=== PATIENT | female | born 1965 | race Hispanic/Latino ===

== ENCOUNTER 2017-10-10 06:32 | Observation (INO) | payer OTHER ==
[2017-10-10] MEDS ORDERED: NACL 0.9% 500 ML 500 ML IV SCH (07:00)
[2017-10-10 07:16] LABS: Basophils % (Auto) 0.3 % (0.0-1.8); Eosinophils % (Auto) 2.8 % (0.0-4.3); Hematocrit 36.6 % (30.3-42.9); Hemoglobin 12.5 gm/dl (10.1-14.3); Mean Corpuscular HGB Conc 34 % (30-34); Mean Corpuscular Hemoglobin 31 pg (28-32); Mean Corpuscular Volume 91 fl (79-97); Platelet Count 270 K/mm3 (140-440); Red Blood Count 4.03 M/mm3 (3.65-5.03); White Blood Count 10.1 K/mm3 (4.5-11.0)
[2017-10-10 07:26] LABS: INR 0.88 (0.87-1.13)
[2017-10-10 07:29] LABS: Calcium 8.8 mg/dL (8.4-10.2); Chloride 103.8 mmol/L (98-107); Potassium 4.1 mmol/L (3.6-5.0)
[2017-10-10] MEDS ORDERED: HEPARIN/NS 5000 UNIT/500ML(CATH LAB) 1,500 ML IR ONE (09:05)
[2017-10-10] MEDS ORDERED: VERSED ONE (09:11)
[2017-10-10] MEDS ORDERED: D50W (25GM) Vial 50 ML IV ONE (09:23)
[2017-10-10] MEDS: SUBLIMAZE ONE ×2 (09:46→10:07)
[2017-10-10] MEDS: XYLOCAINE 2% INFILTRATI ONE ×2 (09:47→10:05)
[2017-10-10] MEDS ORDERED: D50W (25GM) Vial IV ONE (09:56)
[2017-10-10] MEDS: HEPARIN 10,000 UNITS/10 ML ONE ×3 (10:28→11:00)
[2017-10-10] MEDS ORDERED: PLAVIX ONE ×2 (10:40)
[2017-10-10] MEDS ORDERED: NITROGLYCERIN SYRINGE 3 ML ONE (10:40)
[2017-10-10] MEDS ORDERED: ALUM-MAG HYDROX-SIMETH 200-200-20MG/5ML ONE (10:40)
--- NOTE | 2017-10-10 11:43 | Event Note ---
Date: 10/10/17 Outpatient R/L heart cath with successful adhoc PCI of the mid LAD >95% to zero residual. Admit overnight post PCI observation.
--- NOTE | 2017-10-10 11:51 | Cardiac Catherization Report ---
CARDIAC CATHETERIZATION AND CORONARY ANGIOPLASTY REASON FOR PROCEDURE: The patient is a 51-year-old woman with a history of coronary artery disease and aortic insufficiency. Eight years ago, she underwent bioprosthetic aortic valve replacement with coronary bypass x 1 to the right coronary artery. The patient presents at this time with unstable angina. There was progressive angina pectoris, despite medical therapy with beta blockers and nitrates. PROCEDURES PERFORMED: 1. Right heart catheterization. 2. Left heart catheterization. 3. Selective left and right coronary angiography. 4. Left ventricle angiography. 5. Saphenous vein graft angiography. 6. Left internal mammary artery graft angiography. 7. Angioplasty and stenting of the left anterior descending artery. DESCRIPTION OF PROCEDURE: The patient was prepped and draped in a sterile fashion after informed consent. The right femoral artery and vein were entered using the Seldinger technique. A 6-Malagasy sheath was placed in the artery and an 8 Malagasy sheath in the vein. A Miller-Huang catheter was then advanced to the pulmonary artery position. A right Finn catheter was advanced into the left ventricle. Simultaneous right and left heart filling pressures were then measured. Cardiac output was measured using the thermodilution method. The Miller-Huang catheter was withdrawn and right heart pressures were recorded on pullback. The left ventricular angiography was then performed using hand injection and the right Finn catheter. Following this, the right Finn was withdrawn across the bioprosthetic aortic valve and transaortic pressures were recorded. Angiography of the [place] right coronary artery and the saphenous vein graft to the right coronary artery were then performed with the right Finn catheter. We then exchanged for the left Finn, which was used for the left coronary angiography. Following this, the left internal mammary artery catheter was then used to perform left internal mammary artery angiography. FINDINGS: HEMODYNAMICS: The mean right atrial pressure was 15. Right ventricular pressure was 40/18. Pulmonary artery pressure was 35/20. The mean pulmonary artery wedge pressure was 20, with V waves of 30. Left ventricular end-diastolic pressure was 20. Ascending aortic pressure was 165/65. There was minimal to no significant transaortic gradient across the bioprosthetic valve. Cardiac output was 3.8 liters per minute. CORONARY ANGIOGRAPHY: The left main coronary artery was free of significant disease. The left anterior descending artery contained a complex, ulcerated, greater than 95% stenosis of its mid segment. This is a de maryann lesion, which has manifested since the coronary and valve surgery of 8 years ago. The LAD at that time did not require bypass. A small ramus intermedius artery contained moderate severity ostial stenosis. The circumflex artery and its obtuse marginal branches contained diffuse mild atherosclerosis. The right coronary artery was dominant. This vessel contained a long, 80-90% stenosis of its proximal segment. The saphenous vein graft to the distal right coronary artery was patent with good anastomosis to the distal vessel and good distal runoff. No significant lesions were noted within the bypass graft or the distal runoff. There was normal left ventricular systolic function, ejection fraction 60%. CORONARY ANGIOPLASTY: After review of the angiograms, ad hoc coronary angioplasty and stenting of the mid LAD was recommended. We selected an XB 3.5 guiding catheter and advanced to the left coronary ostium. A 0.014 inch guidewire was introduced into the LAD, across the stenotic lesion. A 2.5 mm balloon catheter was then deployed and used to post-dilate the stenosis. We then deployed a serial, 2.75 mm stents across the lesional segment, covering the entire lesion. We then post-dilated the lesion using a 3.0 mm NC balloon catheter. Following balloon angioplasty and stenting and post-dilatation, there was an excellent angiographic result, 0 residual stenosis, MIROSLAVA 3 flow maintained down the vessel. Procedure was well tolerated by the patient and there were no complications. CONCLUSION: 1. Mild to moderate increase in right and left heart filling pressures, mild pulmonary hypertension. 2. No significant gradient on pullback across the bioprosthetic aortic valve. 3. Severe 2-vessel coronary artery disease. 4. Patent saphenous vein graft to the right coronary artery. 5. 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 6. Normal left ventricular systolic function, ejection fraction 60%. 7. Successful ad hoc angioplasty and stenting of the mid LAD, with successful deployment of serial 2.75 mm drug-eluting stents, excellent angiographic result. 8. Left internal mammary artery injection showed this vessel to be in situ, not used for coronary bypass. JOB# [id number] CA/NTS
[2017-10-10] MEDS: IMDUR PO SCH (13:35)
[2017-10-10] MEDS ORDERED: NACL 0.9% 1000 ML 1,000 ML ONE (14:19)
[2017-10-10] MEDS: NACL 0.9% 1000 ML 1,000 ML IV SCH ×2 (14:27→22:49)
[2017-10-10] MEDS ORDERED: ZOFRAN IV ONE (15:50)
[2017-10-10] MEDS ORDERED: ZOFRAN ONE (15:51)
[2017-10-10] MEDS ORDERED: ATROPINE 0.1% (CARDIAC) ONE (16:12)
[2017-10-10] MEDS ORDERED: ULTRAM PO PRN (16:33)
[2017-10-10] MEDS ORDERED: ZOFRAN IV PRN (16:33)
[2017-10-10] MEDS ORDERED: TYLENOL PO PRN (16:33)
[2017-10-10] MEDS ORDERED: AMBIEN PO PRN (16:33)
[2017-10-10] MEDS ORDERED: CALCIUM CARBONATE 1250 MG PO SCH (22:00)
[2017-10-10] MEDS: OSCAL PO SCH (22:53)
[2017-10-10] MEDS: PROGRAF PO SCH (23:36)
[2017-10-10] MEDS: CELLCEPT PO SCH (23:36)
[2017-10-11 06:11] LABS: Basophils % (Auto) 0.2 % (0.0-1.8); Eosinophils % (Auto) 2.4 % (0.0-4.3); Hematocrit 33.2 % (30.3-42.9); Hemoglobin 11.3 gm/dl (10.1-14.3); Mean Corpuscular HGB Conc 34 % (30-34); Mean Corpuscular Hemoglobin 31 pg (28-32); Mean Corpuscular Volume 91 fl (79-97); Platelet Count 230 K/mm3 (140-440); Red Blood Count 3.65 M/mm3 (3.65-5.03); Red Cell Distribution Width 13.6 % (13.2-15.2); White Blood Count 9.5 K/mm3 (4.5-11.0)
[2017-10-11 06:36] LABS: Creatine Kinase MB 1.3 ng/mL (0.0-4.0)
[2017-10-11 06:38] LABS: Anion Gap 14 mmol/L; BUN/Creatinine Ratio 14; Blood Urea Nitrogen 15 mg/dL (7-17); Calcium 8.7 mg/dL (8.4-10.2); Carbon Dioxide 24 mmol/L (22-30); Creatine Kinase 46 units/L (30-135); Glucose 194 mg/dL (65-100); Potassium 4.4 mmol/L (3.6-5.0); Sodium 139 mmol/L (137-145)
--- NOTE | 2017-10-11 09:27 | Short Stay Summary ---
Short Stay Documentation Date of service: 10/11/17 - History H&P: obtained from office - Allergies and Medications Current Medications: Allergies metoclopramide [From Reglan] Allergy (Verified 10/10/17 09:54) JAWS LOCK Sulfa (Sulfonamide Antibiotics) Allergy (Verified 10/10/17 09:54) Hives Home Medications Medication Instructions Recorded Confirmed Last Taken Type Aspirin [Lo-Dose Aspirin EC] 81 mg PO DAILY 10/10/17 10/10/17 10/10/17 05:00 History Calcium Carbonate [Calcium] 1,250 mg PO BID 10/10/17 10/10/17 10/09/17 History Clopidogrel Bisulfate [Plavix] 75 mg PO DAILY 10/10/17 10/10/17 10/10/17 05:00 History Esomeprazole Magnesium [NexIUM] 20 mg PO QDAY 10/10/17 10/10/17 10/09/17 History Insulin Aspart [Novolog Flexpen] 0 unit SQ PRN PRN 10/10/17 10/10/17 Unknown History Insulin NPH, Human [NovoLIN N] 12 units SQ QPM 10/10/17 10/10/17 10/09/17 History Insulin NPH, Human [NovoLIN N] 25 units SQ QAM 10/10/17 10/10/17 10/09/17 History Metoprolol [Lopressor TAB] 50 mg PO DAILY 10/10/17 10/10/17 10/10/17 05:00 History Mycophenolate [Cellcept] 500 mg PO BID 10/10/17 10/10/17 10/09/17 History Prednisone [predniSONE (German) ER 5 mg PO QDAY 10/10/17 10/10/17 10/09/17 History TAB] Simvastatin 40 mg PO DAILY 10/10/17 10/10/17 10/09/17 History Tacrolimus [Prograf] 2 mg PO BID 10/10/17 10/10/17 10/09/17 History Active Medications Acetaminophen (Tylenol) 650 mg PO Q4H PRN PRN Reason: Pain MILD(1-3)/Fever >100.5/ROSAS Aspirin (Baby Aspirin) 81 mg PO QDAY [facility] Calcium Carbonate/Glycine (Oscal) 1,250 mg PO BID [facility] Last Admin: 10/10/17 22:53 Dose: 1,250 mg Clopidogrel Bisulfate (Plavix) 75 mg PO QDAY [facility] Sodium Chloride (Nacl 0.9% 1000 Ml) 1,000 mls @ 100 mls/hr IV DIRECT [facility] Stop: 10/11/17 11:59 Last Admin: 10/10/17 22:49 Dose: 100 mls/hr Insulin Human Regular (Novolin R) 0 units SUB-Q ACHS [facility] PRN Reason: Protocol Last Admin: 10/10/17 22:49 Dose: Not Given Isosorbide Mononitrate (Imdur) 30 mg PO QDAY [facility] Last Admin: 10/10/17 13:35 Dose: 30 mg Metoprolol Tartrate (Lopressor) 50 mg PO DAILY [facility] Mycophenolate Mofetil (Cellcept) 500 mg PO BID [facility] Last Admin: 10/10/17 23:36 Dose: 500 mg Ondansetron HCl (Zofran) 4 mg IV Q8H PRN PRN Reason: N/V unrelieved by Wilber Last Admin: 10/10/17 22:53 Dose: 4 mg Pravastatin Sodium (Pravachol) 80 mg PO DAILY [facility] Prednisone (Deltasone) 5 mg PO QDAY [facility] Tacrolimus (Prograf) 2 mg PO BID [facility] Last Admin: 10/10/17 23:36 Dose: 2 mg Tramadol HCl (Ultram) 50 mg PO Q4H PRN PRN Reason: Pain, Mild (1-3) Zolpidem Tartrate (Ambien) 5 mg PO QHS PRN PRN Reason: Sleep - Physical exam General appearance: no acute distress HEENT: PERRLA Lungs: Clear to auscultation Heart: Regular rate, Normal S1, Normal S2 - Brief post op/procedure progress note Procedure: Outpatient R/L heart cath with successful adhoc PCI of the mid LAD >95% to zero residual. Condition: stable - Hospital course Hospital course: Stable overnight observation. - Disposition Condition at discharge: Good Disposition: [id number] TO HOME OR SELFCARE Short Stay Discharge Plan Activity: advance as tolerated Diet: low fat, low cholesterol, low salt, diabetic Special Instructions: other (Post cardiac cath instructions.) Follow up with: MATA PEREA MD [Staff Physician] - 7 Days VIDAL ARGUETA MD [Primary Care Provider] - 7 Days TRISTIN CRAWFORD MD [Staff Physician] - 7 Days Forms: CardCath PCI D/C Instructions Prescriptions: Clopidogrel Bisulfate [Plavix] 75 mg PO DAILY #30 tablet ISOSORBIDE MONOnitrate [Imdur ER] 30 mg PO QDAY #30 tablet
[2017-10-11 09:54] VITALS: BP 121/46
--- NOTE | 2017-10-11 09:58 | XRay Report ---
AP CHEST: HISTORY: chest pain AP view of the chest demonstrates a normal mediastinal and cardiac contour with clear lungs and normal bony and soft tissue structures. IMPRESSION: Unremarkable AP chest.
[2017-10-11] MEDS ORDERED: PRAVACHOL PO SCH (10:00)
[2017-10-11] MEDS: IMDUR PO SCH (10:00)
[2017-10-11] MEDS ORDERED: LOPRESSOR PO SCH (10:00)
[2017-10-11] MEDS ORDERED: DELTASONE PO SCH (10:00)
[2017-10-11] MEDS ORDERED: PLAVIX PO SCH (10:00)
[2017-10-11] MEDS: OSCAL PO SCH (10:00)
[2017-10-11] MEDS: PROGRAF PO SCH (10:00)
[2017-10-11] MEDS ORDERED: BABY ASPIRIN PO SCH (10:00)
[2017-10-11] MEDS ORDERED: NON-FORMULARY (Simvastatin [Simvastatin] 40 MG) PO SCH (10:00)
[2017-10-11] MEDS: CELLCEPT PO SCH (10:00)
[2017-10-11] MEDS ORDERED: NON-FORMULARY (Prednisone [Prednisone (Rayos) Er Tab] 5 MG) PO SCH (10:00)
== END 2017-10-11 11:00 | disposition home or self-care (01) ==
LOC: CATHLABREC 06:32 → 4A 11:31
PROVIDERS: ADMIT Internal Medicine Cardiovascular Disease; ATTEND Internal Medicine
DX: I25.110 Atherosclerotic heart disease of native coronary artery with unstable angina pectoris (principal); I35.1 Nonrheumatic aortic (valve) insufficiency; I35.8 Other nonrheumatic aortic valve disorders; R93.1 Abnormal findings on diagnostic imaging of heart and coronary circulation; R01.1 Cardiac murmur, unspecified; R09.89 Other specified symptoms and signs involving the circulatory and respiratory systems; I10 Essential (primary) hypertension; E11.9 Type 2 diabetes mellitus without complications; Z98.61 Coronary angioplasty status
CPT/HCPCS: 36415; 71010; 80048; 82550; 82553; 82962; 84484; 85025; 85347; 85610; 85730; 93005; 93010; 93461; 96374; 96375; 96376; A9270; C1725; C1769; C1874; C1887; C1894; C9600; G0378; J1644; J2250; J2405; J3010; J7030; J7040; J7507; J7512; 92928; J0461; J7517; Q9967

== ENCOUNTER 2017-10-31 08:49 | Outpatient (CLI) | payer OTHER ==
--- NOTE | 2017-10-31 10:54 | Mammography Report ---
BONE DEXA:10/31/17 08:49:00 CLINICAL: Postmenopausal. COMPARISON: 10/09/13, 11/17/10, 07/12/06 and 12/22/04 TECHNIQUE: Two site bone DEXA performed on an Hologic scanner. FINDINGS: The average BMD of the lumbar spine L1-L4 is 0.896g/cm squared with a T-score of -1.4 and a Z-score of -0.4. This compares to 0.925g/cm squared on the last exam and represents a -3.2% change from the previous last study and a -10.3% change from baseline. The average BMD of the left hip is 0.645g/cm squared with a T-score of -2.4 and a Z-score of -1.8. This compares to 0.668g/cm squared on the last exam and represents a -3.4% change from the last study and a -6.6% change from baseline. The left from a neck BMD is 0.480g/cm squared with a T score of -3.3 and a Z score of -2.4. IMPRESSION: 1. WHO classification: Osteopenia with increased fracture risk based on spine measurements. A modest decline in spine BMD compared to the last exam and a greater decline compared to baseline. 2. WHO classification: Osteoporosis with high fracture risk based on left femoral neck measurements. A modest decline in hip BMD compared to the last exam and a greater decline compared to baseline. RECOMMENDATION: Clinical correlation and routine screening. DEFINITIONS: BMD = Bone Mineral Density T-score = BMD related to mean peak bone mass of young adult (mean expressed in Standard Deviation) Z-score = Age matched BMD expressed in SD World Health Organization (WHO) Diagnostic Criteria Normal T-score > -1 SD Osteopenia T-score between -1 and -2.4 SD Osteoporosis T-score -2.5 SD or below NOTE: BMD is not the only risk factor for fracture; also consider factors such as the patient's age, risk of falling, previous osteoporotic fracture, family history of osteoporotic fractures, current smoker, and low body weight. Z-scores are not calculated if >80 years of age.
== END 2017-10-31 08:50 | disposition home or self-care (01) ==
LOC: MAMMO 08:49
DX: M81.0 Age-related osteoporosis without current pathological fracture (principal); M85.88 Other specified disorders of bone density and structure, other site; I10 Essential (primary) hypertension; I25.10 Atherosclerotic heart disease of native coronary artery without angina pectoris; Z78.0 Asymptomatic menopausal state; Z87.891 Personal history of nicotine dependence
CPT/HCPCS: 77080

== ENCOUNTER 2019-10-23 10:27 | Outpatient (CLI) | payer OTHER ==
--- NOTE | 2019-10-23 12:08 | Mammography Report ---
BILATERAL DIGITAL SCREENING MAMMOGRAM WITH CAD INDICATION: Routine screening mammography, history of bilateral breast surgery. TECHNIQUE: Digital bilateral 2D mammography was obtained in the craniocaudal and mediolateral obliq ue projections. This examination was interpreted with the benefit of Computer-Aided Detection analysi s. COMPARISON: 09/19/2018, 02/17/2016. FINDINGS: Breast Density: The breasts are heterogeneously dense, which may obscure small masses. No suspicious mass, microcalcifications, or architectural distortion. Stable mild distortion within t he subareolar breasts bilaterally, consistent with sites of reported prior surgery. IMPRESSION: No evidence of breast malignancy. Recommend routine screening mammogram in one year. BI-RADS Category 2: Benign. No mammographic evidence of malignancy. Recommend routine screening ma mmography in one year. A "normal" or negative report should not discourage follow up or biopsy of a clinically significant f inding. A written summary of these findings will be mailed to the patient. The patient will be entered into a mammography reporting system which will generate a reminder letter for the patient's next appointmen t at the appropriate interval. The [employer] recommends yearly mammograms starting at age 40 and continuing as l thomas as a woman is in good health. Breast MRI is recommended for women with an approximate 20-25% or greater lifetime risk of breast cancer, including women with a strong family history of breast or ova jon cancer or who have been treated for Hodgkin's disease. Signer Name: Marques Tracey MD Signed: 10/23/2019 12:03 PM Workstation Name: [id number]
--- NOTE | 2019-10-23 12:44 | Mammography Report ---
DEXA BONE DENSITY SCAN INDICATION: OSTEOPOROSIS. COMPARISON: 10/31/2017. DEFINITIONS: BMD = Bone Mineral Density T-score = BMD related to mean peak bone mass of a young child (mean expressed in standard deviation) Z-score = age matched BMD is expressed in SD World Health Organization (WHO) diagnostic criteria Normal T score > -1 SD Osteopenia T score between -1 and -2.4 SD Osteoporosis T score -2.5 SD or below. LUMBAR SPINE (L1-L4): Bone mineral density (BMD) is 1.025 g/cm2. (Previously 0.896 g/cm2) T-score is -0.2 (standard deviations of Young Adult mean). (Previously -1.4) Z-score is 0.9 (standard deviations of Age Matched mean). (Previously -0.4) LEFT FEMORAL NECK: Bone mineral density (BMD) is 0.585 g/cm2. (Previously 0.480 g/cm2) T-score is -2.4 (standard deviations of Young Adult mean). (Previously -3.3) Z-score is -1.3 (standard deviations of Age Matched mean). (Previously -2.4) IMPRESSION: 1. Compared to most recent 2017 exam, there is interval improvement in bone mineral density overall, as described above. 2. WHO classification: Current analysis shows osteopenia with increased risk for fracture based upon left femoral neck measurement. Of note, previously osteoporosis with high risk fracture was identifie d in the left femoral neck on 2017 exam. Signer Name: Marques Tracey MD Signed: 10/23/2019 12:40 PM Workstation Name: [id number]
== END 2019-10-23 10:28 | disposition home or self-care (01) ==
LOC: SPVWC 10:27
DX: Z12.31 Encounter for screening mammogram for malignant neoplasm of breast (principal); M81.0 Age-related osteoporosis without current pathological fracture
CPT/HCPCS: 77067; 77080